=== PATIENT | female | born 1995 | race Caucasian/White ===

== ENCOUNTER 2018-03-25 19:07 | Emergency (ER) | payer SELFPAY ==
[2018-03-25 19:27] VITALS: BP 149/86
--- NOTE | 2018-03-25 19:55 | UC ---
Throat Pain/Nasal Antolin HPI - HPI Summary HPI Summary: C/O sore throat with cough x 2 days. Throat pain worse with swollowing. - History of Current Complaint Chief Complaint: UCRespiratory Stated Complaint: ST Hx Obtained From: Patient Hx Last Menstrual Period: 02/22/18 ?: No Onset/Duration: Sudden Onset, Lasting Days - 2, Still Present Severity: Moderate Pain Intensity: 5 Cough: Nonproductive Associated Signs & Symptoms: Positive: Dysphagia, Nasal Discharge, Fever. Negative: Drooling, Wheezing, Hoarseness, Sinus Discomfort, Vomiting - but some nausea, Rash - Allergies/Home Medications Allergies/Adverse Reactions: Allergies Allergy/AdvReac Type Severity Reaction Status Date / Time No Known Allergies Allergy Verified 03/25/18 19:23 Home Medications: Home Medications Norethindrone AC-Eth Estradiol [Loestrin 21 1-20 Tablet] 1 tab DAILY 03/25/18 [ History Confirmed 03/25/18] PMH/Surg Hx/FS Hx/Imm Hx Previously Healthy: Yes - Surgical History Surgical History: Yes Surgery Procedure, Year, and Place: hernia repair December 2014, wisdom teeth extraction 09/2015 - Family History Known Family History: Negative: Diabetes Family History: no cardio-vascular issues run in family - Social History Occupation: Student Lives: Dormitory/Roommates Alcohol Use: Weekly Alcohol Amount: WEEKENDS Substance Use Type: None Smoking Status (MU): Never Smoked Tobacco Review of Systems All Other Systems Reviewed And Are Negative: Yes Constitutional: Positive: Fever ENT: Positive: Sore Throat, Nasal Discharge Respiratory: Positive: Cough Is Patient Immunocompromised?: No Physical Exam Triage Information Reviewed: Yes Appearance: No Pain Distress, Well-Nourished, Ill-Appearing - mild Vital Signs: Initial Vital Signs Temp 98 F 03/25/18 19:25 Pulse 73 03/25/18 19:25 Resp 16 03/25/18 19:25 BP 149/86 03/25/18 19:25 Pulse Ox 100 03/25/18 19:25 Vital Signs Reviewed: Yes Eyes: Positive: Conjunctiva Clear ENT: Positive: Pharynx normal - with posterior lymphoid hyperplasia, Nasal congestion, TMs normal Neck exam: Normal Respiratory Exam: Normal Cardiovascular Exam: Normal Abdomen Description: Positive: Nontender, No Organomegaly, Soft Bowel Sounds: Positive: Present Musculoskeletal Exam: Normal Neurological Exam: Normal Psychological Exam: Normal Skin Exam: Normal Diagnostics - Laboratory Diagnostic Studies Completed/Ordered: Negative rapid flu and rapid strep. Throat Pain/Nasal Course/Dx - Differential Dx/Diagnosis Differential Diagnosis/HQI/PQRI: Peritonsillar Abscess, Pharyngitis, Tonsillitis , URI Provider Diagnosis: Upper respiratory infection with cough and congestion Discharge - Sign-Out/Discharge Documenting (check all that apply): Patient Departure All imaging exams completed and their final reports reviewed: No Studies - Discharge Plan Condition: Stable Disposition: HOME Patient Education Materials: Upper Respiratory Infection (ED) Referrals: No Primary Care Phys,NOPCP [Primary Care Provider] - - Billing Disposition and Condition Condition: STABLE Disposition: Home
[2018-03-25 20:00] LABS: Influenza A Molecular NEGATIVE (Negative); Influenza B Molecular NEGATIVE (Negative)
== END 2018-03-25 20:09 | disposition home or self-care (01) ==
LOC: UCCORT 19:07
DX: J06.9 Acute upper respiratory infection, unspecified (principal); R05 Cough; R09.81 Nasal congestion
CPT/HCPCS: 87651; 99211; G0463